=== PATIENT | female | born 1955 | race Caucasian/White ===

== ENCOUNTER 2019-05-22 07:24 | Day surgery (SDC) | payer OTHER ==
[~2019-05-22] VITALS: Ht 160 cm; Wt 60.3 kg
[~2019-05-22 07:24] MED LIST: ASPIR 8181 MG; BUPROPION XL300 MG PO; CITALOPRAM HBR10 MG PO; LIPITOR20 MG GT; MOMETASONE FURO15 G1
[2019-05-22] MEDS ORDERED: GARCINIA CAMBO1 EACH PO (07:43)
--- NOTE | 2019-05-22 09:15 | NUR ---
05/22/19 0915 Stephanie Boo 0906 PT ARRIVED TO PACU ASLEEP AND VSS. RESP EVEN AND UNLABORED. 0910 PT WOKE EASILY TO TACTILE STIMULI AND DENIES NAUSEA AND PAIN. PT REORIENTED TO PACU AND ENCOURAGED TO DEEP BREATHE OFF AND ON. PT ENCOURAGED TO PASS GAS/AIR, PT ABLE TO PASS LARGE AMOUNTS OF AIR THEN FALLS BACK TO SLEEP.
--- NOTE | 2019-05-23 14:31 | PATH ---
[facility] [address], [place] [address] Signed SPECIMEN(S): A CECAL BIOPSY SPECIMEN(S): B RECTUM SPECIMEN SOURCE: A. CECAL BIOPSY B. RECTUM CLINICAL HISTORY: Rectal bleeding, hx polyps. MICROSCOPIC DESCRIPTION: Histologic sections of all submitted blocks are examined by light microscopy. These findings, together with the gross examination, support the pathologic diagnosis. FINAL PATHOLOGIC DIAGNOSIS: A. Colon, cecum, biopsy: - Colonic mucosa with no histopathologic abnormality. - Negative for dysplasia or malignancy. B. Rectum, biopsy: - Rectal mucosa with no histopathologic abnormality. - Negative for dysplasia or malignancy. NAL:cml:C2NR GROSS DESCRIPTION: A. The specimen is received in a formalin filled specimen container labeled "KB, #1". Two flor biopsies are each 0.3 cm and entirely submitted in cassette A1. B. The specimen is received in a formalin filled specimen container labeled "KB, #2". Two flor biopsies are 0.2 and 0.3 cm and entirely submitted in cassettes B1. GW (under the direct supervision of a pathologist) The Gross Description was prepared using a voice recognition system. The report was reviewed for accuracy; however, sound-alike word errors, addition and/or deletions may occur. If there is any question about this report, please contact Client Services. PERFORMING LABORATORY: The technical component was performed by [facility], [address] [place] [id number] (Reservation Sales Agent: Tita Almazan MD; CLIA# [id number]). [facility], [address] [place] [address] [facility]. 107, PATIENT NAME: CONG GOMEZ PATHOLOGY DATE OF : 59 REPORT #: [id number] PHYSICIAN: [facility] PATH[facility] PCP: TAJ BANKS MD REPORT IS CONFIDENTIAL AND NOT TO BE RELEASED WITHOUT AUTHORIZATION [facility] [address] [facility] [place] [address] Signed [place] [address] (Reservation Sales Agent: Jose Trevino MD; CLIA# [id number]). Diagnostician: Nydia Conley MD Pathologist Electronically Signed 05/23/2019 Copies: ~ PATIENT NAME: CONG GOMEZ PATHOLOGY DATE OF : 59 REPORT #: [id number] PHYSICIAN: [facility] PATH[facility] PCP: TAJ BANKS MD REPORT IS CONFIDENTIAL AND NOT TO BE RELEASED WITHOUT AUTHORIZATION
--- NOTE | 2019-05-23 22:02 | OR ---
[facility] [address] [place], [place] [address] Signed DATE OF OPERATION: 05/22/2019 SURGEON: Gerber Joaquin MD PREOPERATIVE DIAGNOSES: 1. Episodic rectal bleeding. 2. History of colon polyps (2009). POSTOPERATIVE DIAGNOSIS: Normal-appearing colon except for internal hemorrhoids. PROCEDURE: Total colonoscopy to cecum with biopsy of cecum and rectum. ANESTHESIA: Intravenous sedation, fentanyl 150 mcg, Versed 7 mg. INDICATION: This 64-year-old white woman is a patient of Dr. Banks. She lives in [place], [place]. She is known to me from the past having undergone colonoscopy in 2009, at which time, she was noted to have a hyperplastic polyp. She has had relatively frequent rectal bleeding associated with hard stool and bright red rectal bleeding that is painless. She has no family history of colon cancer. She is admitted at this time to undergo colonoscopy to better characterize the problem, understanding the risks of bleeding, infection, and perforation. FINDINGS: The prep was excellent. Complete colonoscopy was undertaken to the cecum without question. She had no sign of polyps or colitis. She did have internal hemorrhoids, most likely the source of her bleeding. PROCEDURE NOTE: The patient was brought to the endoscopy suite and placed in lateral decubitus position, given intravenous sedation to the point of slurred speech and nystagmus. Digital rectal examination was normal, except for some internal hemorrhoidal changes noted. An Olympus video colonoscope was passed in the rectum and manipulated throughout the colon ultimately intubating the cecum itself. The ileocecal valve and appendiceal orifice were normal. Biopsies were taken of the cecum to assess for occult colitis. The scope was then withdrawn and examination throughout showed no sign of abnormality. Electronically Signed By: GERBER JOAQUIN MD 05/23/19 2202 PATIENT NAME: CONG GOMEZ OPERATIVE REPORT DATE OF : 59 REPORT #: [id number] PHYSICIAN: GERBER JOAQUIN MD PCP: NICK BANKS MD REPORT IS CONFIDENTIAL AND NOT TO BE RELEASED WITHOUT AUTHORIZATION [facility] [address] [place], [place] [address] Signed Retroflexed view of the rectum could not be undertaken due to discomfort. Careful withdrawal of scope through the anal canal did demonstrate internal hemorrhoidal changes, however. Biopsy was taken of the rectum as well. The scope was removed and the patient was taken to recovery room in good condition. CONCLUDING DIAGNOSIS: Most likely rectal bleeding related to internal hemorrhoids. No evidence of polyps or cancer. PLAN: Recommend Citrucel one scoop p.o. daily. If bleeding persists, would recommend hemorrhoidal banding in the office setting. MD STACIE Self/RCL /[id number] cc: Nick Banks MD Copies: NICK BANKS MD ~ Electronically Signed By: GERBER JOAQUIN MD 05/23/19 2202 PATIENT NAME: CONG GOMEZ OPERATIVE REPORT DATE OF : 59 REPORT #: [id number] PHYSICIAN: GERBER JOAQUIN MD PCP: NICK BANKS MD REPORT IS CONFIDENTIAL AND NOT TO BE RELEASED WITHOUT AUTHORIZATION
== END 2019-05-22 10:00 | disposition home or self-care (01) ==
LOC: OPS 07:24 → DS 07:24 → OPS 08:45
PROVIDERS: Surgery
PROC: 0DBH8ZX Excision of Cecum, Via Natural or Artificial Opening Endoscopic, Diagnostic (ICD-10-PCS; 2019-05-22)
PROC: 0DBP8ZX Excision of Rectum, Via Natural or Artificial Opening Endoscopic, Diagnostic (ICD-10-PCS; principal; 2019-05-22 08:45)
DX: K64.8 Other hemorrhoids (principal); E78.5 Hyperlipidemia, unspecified; F32.9 Major depressive disorder, single episode, unspecified; Z78.0 Asymptomatic menopausal state; Z86.010 Personal history of colon polyps; Z79.899 Other long term (current) drug therapy; Z79.1 Long term (current) use of non-steroidal anti-inflammatories (NSAID)
CPT/HCPCS: 88305; 99153; G0500; J2250; J3010; J7121